=== PATIENT | male | born 1960 | race Caucasian/White ===

== ENCOUNTER 2020-03-03 04:18 | Inpatient (IN) ==
[2020-03-03] MEDS ORDERED: Acetaminophen 325 MG TABLET PO PRN (06:45)
[2020-03-03] MEDS ORDERED: Naloxone 0.4 MG/ML INJ IVP PRN (06:45)
[2020-03-03 06:46] LABS: Influenza A PCR Negative (Negative); Influenza B PCR Negative (Negative); Resp. Syncytial Virus PCR Negative (Negative)
[2020-03-03] MEDS ORDERED: Perflutren Lipid Microsphere 1.3 ML in 0.9 % Sodium Chloride 8.7 ML IVP PRN (06:46)
[2020-03-03 06:50] LABS: SARS-CoV-2 by PCR (In House) Positive (Negative)
[2020-03-03 08:01] LABS: Basophils % 0.4 %; Eosinophils # 0.1 K/mcL (0.0-0.6); Eosinophils % 1.4 %; Hematocrit 39.3 % (37.5-50.1); Hemoglobin 13.3 g/dL (12.9-16.9); Immature Granulocytes % 0.2 % (0-4); Lymphocytes # 2.1 K/mcL (0.6-4.6); Lymphocytes % 22.2 %; Mean Corpuscular HGB Conc 33.8 g/dL (31.6-35.5); Mean Corpuscular Volume 85.8 fL (83.0-100.0); Mean Platelet Volume 9.7 fL (9.4-12.4); Monocytes # 0.6 K/mcL (0.0-1.3); Neutrophils # 6.6 K/mcL (1.6-8.9); Platelet Count 220 K/mcL (140-400); Red Blood Count 4.58 M/mcL (4.19-5.50); Red Cell Distribution Width 13.6 % (11.5-14.5); Segmented Neutrophils % 69.8 %; White Blood Count 9.5 K/mcL (4.3-11.1)
[2020-03-03 08:04] LABS: INR 1.1; Prothrombin Time 12.3 Seconds (9.4-12.1)
[2020-03-03 08:21] LABS: Troponin I 0.06 ng/mL (< 0.04)
[2020-03-03 08:29] LABS: Albumin 4.2 g/dL (3.5-5.7); Albumin/Globulin Ratio 1.4 (1.1-2.2); Bilirubin,Total 1.1 mg/dL (0.3-1.0); Calcium 8.9 mg/dL (8.6-10.3); Chol/HDL Ratio 4.6 (0-4.9); Globulin 3.1 g/dL (2.4-3.5); Magnesium 2.1 mg/dL (1.6-2.6); Phosphorous 4.2 mg/dL (2.7-4.5); Potassium 3.7 mEq/L (3.5-5.1); Total Protein 7.3 g/dL (6.4-8.9)
[2020-03-03] MEDS: amLODIPine 5 MG TABLET PO SCH (10:55)
[2020-03-03 12:04] LABS: Bilirubin,Urine Negative (Negative); Blood,Urine Negative (Negative); Clarity,Urine Clear (Clear); Color,Urine Light-Yellow (Yellow); Glucose,Urine (UA) Normal (Normal); Ketones,Urine Negative (Negative); Leukocyte Esterase,Urine Negative (Negative); Nitrite,Urine Negative (Negative); Protein,Urine Trace mg/dL (Neg-Trace); Specific Gravity,Urine 1.014 (1.010-1.025); Urobilinogen,Urine Normal (Normal)
[2020-03-03 12:12] LABS: Protein/Creatinine Ratio,Urine 0.34 mg/mg (0.00-0.20); Sodium, Urine 76.1 mEq/L
[2020-03-03] MEDS ORDERED: *HR* Labetalol 20 MG/4 ML SYRINGE IVP ONE (18:56)
[2020-03-04 01:02] LABS: Basophils % 0.4 %; Eosinophils # 0.3 K/mcL (0.0-0.6); Eosinophils % 2.7 %; Hematocrit 38.9 % (37.5-50.1); Hemoglobin 13.4 g/dL (12.9-16.9); Immature Granulocytes % 0.2 % (0-4); Lymphocytes % 31.6 %; Mean Corpuscular HGB Conc 34.4 g/dL (31.6-35.5); Mean Corpuscular Hemoglobin 28.9 pg (28.0-33.3); Mean Corpuscular Volume 83.8 fL (83.0-100.0); Mean Platelet Volume 9.9 fL (9.4-12.4); Monocytes # 0.7 K/mcL (0.0-1.3); Monocytes % 7.4 %; Neutrophils # 5.4 K/mcL (1.6-8.9); Platelet Count 200 K/mcL (140-400); Red Blood Count 4.64 M/mcL (4.19-5.50); Red Cell Distribution Width 13.9 % (11.5-14.5); Segmented Neutrophils % 57.7 %; White Blood Count 9.4 K/mcL (4.3-11.1)
[2020-03-04 01:22] LABS: Calcium 8.5 mg/dL (8.6-10.3); Potassium 3.5 mEq/L (3.5-5.1)
[2020-03-04 04:09] LABS: Estimated Average Glucose 100 mg/dl; Hemoglobin A1C 5.1 %
[2020-03-04] MEDS ORDERED: Regadenoson 0.4 MG/5 ML SYRINGE IVP ONE (06:12)
[2020-03-04] MEDS: Aspirin Enteric Coated 81 MG Tablet PO SCH (07:55)
[2020-03-04] MEDS: amLODIPine 5 MG TABLET PO SCH (07:55)
[2020-03-04] MEDS ORDERED: 0.9 % Sodium Chloride 1,000 ML IVC SCH (11:45)
[2020-03-04] MEDS: Gabapentin 300 MG CAPSULE PO SCH ×2 (17:57→22:17)
[2020-03-04] MEDS: traZODone 50 MG TABLET PO SCH (22:17)
[2020-03-05 05:39] LABS: Calcium 8.6 mg/dL (8.6-10.3); Magnesium 2.2 mg/dL (1.6-2.6); Phosphorous 3.9 mg/dL (2.7-4.5); Potassium 3.5 mEq/L (3.5-5.1)
[2020-03-05] MEDS: Aspirin Enteric Coated 81 MG Tablet PO SCH (08:08)
[2020-03-05] MEDS: amLODIPine 5 MG TABLET PO SCH (08:08)
[2020-03-05] MEDS: Gabapentin 300 MG CAPSULE PO SCH ×3 (08:08→21:34)
[2020-03-05] MEDS ORDERED: 0.9 % Sodium Chloride 1,000 ML IVC SCH (10:00)
[2020-03-05] MEDS: traZODone 50 MG TABLET PO SCH (21:34)
[2020-03-06 04:34] LABS: Basophils % 0.4 %; Eosinophils # 0.4 K/mcL (0.0-0.6); Eosinophils % 4.2 %; Hematocrit 38.9 % (37.5-50.1); Hemoglobin 12.8 g/dL (12.9-16.9); Immature Granulocytes % 0.4 % (0-4); Lymphocytes # 2.9 K/mcL (0.6-4.6); Lymphocytes % 31.2 %; Mean Corpuscular HGB Conc 32.9 g/dL (31.6-35.5); Mean Corpuscular Hemoglobin 28.4 pg (28.0-33.3); Mean Corpuscular Volume 86.3 fL (83.0-100.0); Mean Platelet Volume 9.7 fL (9.4-12.4); Monocytes # 0.7 K/mcL (0.0-1.3); Monocytes % 7.3 %; Neutrophils # 5.3 K/mcL (1.6-8.9); Platelet Count 228 K/mcL (140-400); Red Blood Count 4.51 M/mcL (4.19-5.50); Red Cell Distribution Width 13.8 % (11.5-14.5); Segmented Neutrophils % 56.5 %; White Blood Count 9.3 K/mcL (4.3-11.1)
[2020-03-06 04:53] LABS: Calcium 8.7 mg/dL (8.6-10.3); Magnesium 2.2 mg/dL (1.6-2.6); Phosphorous 3.8 mg/dL (2.7-4.5); Potassium 3.6 mEq/L (3.5-5.1)
[2020-03-06] MEDS: Gabapentin 300 MG CAPSULE PO SCH ×3 (08:12→21:39)
[2020-03-06] MEDS: Aspirin Enteric Coated 81 MG Tablet PO SCH (08:12)
[2020-03-06] MEDS: amLODIPine 5 MG TABLET PO SCH (08:36)
[2020-03-06] MEDS ORDERED: Nitroglycerin 1,000 MCG/10 ML VIAL IV ONE (10:24)
[2020-03-06] MEDS ORDERED: Heparin 1,000 UNITS/500 mL 500 ML ONE (10:24)
[2020-03-06] MEDS ORDERED: 0.9 % Sodium Chloride 1,000 ML ONE (10:24)
[2020-03-06] MEDS ORDERED: ISOVUE-370 200 ML INFUS..BTL ONE (10:24)
[2020-03-06] MEDS ORDERED: *HR* Heparin 10,000 UNIT/10 ML VIAL ONE (10:24)
[2020-03-06] MEDS ORDERED: *HR* FentaNYL (PF) 100 MCG/2 ML VIAL ONE (10:49)
[2020-03-06] MEDS ORDERED: *HR* Midazolam HCl 2 MG/2 ML VIAL ONE (10:50)
[2020-03-06] MEDS: hydrALAZINE 25 MG TABLET PO SCH ×2 (17:59→21:39)
[2020-03-06] MEDS: traZODone 50 MG TABLET PO SCH (21:39)
[2020-03-07 02:23] LABS: Basophils # 0.1 K/mcL (0.0-0.2); Basophils % 0.4 %; Eosinophils # 0.4 K/mcL (0.0-0.6); Eosinophils % 3.5 %; Hematocrit 37.7 % (37.5-50.1); Hemoglobin 12.8 g/dL (12.9-16.9); Immature Granulocytes % 0.2 % (0-4); Lymphocytes # 3.3 K/mcL (0.6-4.6); Lymphocytes % 28.5 %; Mean Corpuscular Hemoglobin 28.9 pg (28.0-33.3); Mean Corpuscular Volume 85.1 fL (83.0-100.0); Mean Platelet Volume 9.2 fL (9.4-12.4); Monocytes % 8.8 %; Neutrophils # 6.7 K/mcL (1.6-8.9); Platelet Count 221 K/mcL (140-400); Red Blood Count 4.43 M/mcL (4.19-5.50); Red Cell Distribution Width 13.9 % (11.5-14.5); Segmented Neutrophils % 58.6 %; White Blood Count 11.4 K/mcL (4.3-11.1)
[2020-03-07 02:38] LABS: Calcium 8.5 mg/dL (8.6-10.3); Magnesium 2.2 mg/dL (1.6-2.6); Phosphorous 3.8 mg/dL (2.7-4.5); Potassium 3.6 mEq/L (3.5-5.1)
[2020-03-07] MEDS: amLODIPine 5 MG TABLET PO SCH (08:15)
[2020-03-07] MEDS: Aspirin Enteric Coated 81 MG Tablet PO SCH (08:15)
[2020-03-07] MEDS: Gabapentin 300 MG CAPSULE PO SCH (08:15)
[2020-03-07] MEDS ORDERED: hydrALAZINE 25 MG TABLET PO SCH (09:00)
[2020-03-07 10:43] VITALS: BP 135/78
[2020-03-07] MEDS ORDERED: FLU Vac QV 20-21 (6Month+)/PF 0.5 ML SYRINGE IM ONE (12:52)
== END 2020-03-07 14:24 | disposition home or self-care (01) | DRG 682 ==
LOC: CDU → SUATTDRO 05:57 → 2NENU 06:55 → CDU 18:53 → 3ANU 03-04 06:05 → SUATTDRO 03-04 19:50
PROVIDERS: ADMIT Student in an Organized Health Care Education/Training Program; ATTEND Internal Medicine

== ENCOUNTER 2021-01-05 19:50 | Inpatient (IN) ==
[2021-01-05] MEDS ORDERED: Perflutren Lipid Microsphere 1.3 ML in 0.9 % Sodium Chloride 8.7 ML IVP PRN ×2 (21:11→22:20)
[2021-01-05] MEDS ORDERED: Furosemide 20 MG/2 ML VIAL IVP ONE ×2 (21:21→22:16)
[2021-01-05] MEDS ORDERED: Potassium Chloride Elixir 20 MEQ/15 ML UDC PO ONE (21:22)
[2021-01-05] MEDS ORDERED: *HR* Heparin 5,000 UNIT/ML VIAL IVP PRN (21:22)
[2021-01-05] MEDS ORDERED: Naloxone 0.4 MG/ML INJ IVP PRN (21:24)
[2021-01-05] MEDS ORDERED: Acetaminophen 325 MG TABLET PO PRN (21:29)
[2021-01-05] MEDS ORDERED: Ondansetron 4 MG/2 ML VIAL IVP PRN (21:29)
[2021-01-05] MEDS ORDERED: Heparin 25,000UNIT/250ML 1/2NS 25,000 UNIT/250 ML IV.SOLN IVC SCH (21:30)
[2021-01-05] MEDS: Gabapentin 400 MG CAPSULE PO SCH (21:45)
[2021-01-05 22:11] LABS: Heparin anti-factor XA UFH 0.66 IU/mL (0.30-0.70); INR 1.2; Prothrombin Time 13.1 Seconds (9.4-12.1)
[2021-01-06] MEDS ORDERED: Morphine Sulfate 2 MG/ML SYRINGE IVP PRN (00:48)
[2021-01-06 04:17] LABS: Hematocrit 38.7 % (37.5-50.1); Hemoglobin 13.2 g/dL (12.9-16.9); Mean Corpuscular HGB Conc 34.1 g/dL (31.6-35.5); Mean Corpuscular Hemoglobin 29.3 pg (28.0-33.3); Mean Corpuscular Volume 85.8 fL (83.0-100.0); Mean Platelet Volume 9.4 fL (9.4-12.4); Platelet Count 221 K/mcL (140-400); Red Blood Count 4.51 M/mcL (4.19-5.50); Red Cell Distribution Width 13.6 % (11.5-14.5); White Blood Count 7.5 K/mcL (4.3-11.1)
[2021-01-06 04:24] LABS: Calcium 8.1 mg/dL (8.6-10.3); Chol/HDL Ratio 3.2 (0-4.9); Magnesium 2.1 mg/dL (1.6-2.6); Potassium 3.3 mEq/L (3.5-5.1)
[2021-01-06] MEDS: *HR* Heparin 5,000 UNIT/ML VIAL IVP PRN ×2 (05:59→12:59)
[2021-01-06] MEDS: Aspirin Enteric Coated 81 MG Tablet PO SCH (07:55)
[2021-01-06] MEDS: Gabapentin 400 MG CAPSULE PO SCH ×3 (07:55→19:49)
[2021-01-06] MEDS: Furosemide 40 MG/4 ML VIAL IVP SCH ×3 (07:56→23:52)
[2021-01-06] MEDS ORDERED: Potassium Chloride Elixir 20 MEQ/15 ML UDC PO ONE (08:22)
[2021-01-06 08:38] LABS: Estimated Average Glucose 97 mg/dl
[2021-01-06] MEDS ORDERED: Metoprolol XL (24 HR) Succ 50 MG TAB.ER.24H PO SCH ×2 (09:00)
[2021-01-06] MEDS ORDERED: amLODIPine 5 MG TABLET PO SCH (09:00)
[2021-01-06] MEDS: Isosorbide MONOnitrate (24 HR) 30 MG TAB.ER.24H PO SCH (10:19)
[2021-01-06] MEDS ORDERED: hydrALAZINE 25 MG TABLET PO ONE (12:18)
[2021-01-06] MEDS: amLODIPine 5 MG TABLET PO SCH (12:54)
[2021-01-06] MEDS: hydrALAZINE 25 MG TABLET PO SCH ×2 (16:02→23:52)
[2021-01-06] MEDS: Metoprolol XL (24 HR) Succ 50 MG TAB.ER.24H PO SCH (19:49)
[2021-01-07 02:19] LABS: Calcium 8.1 mg/dL (8.6-10.3); Potassium 3.3 mEq/L (3.5-5.1)
[2021-01-07 05:47] LABS: Hematocrit 39.9 % (37.5-50.1); Hemoglobin 13.3 g/dL (12.9-16.9); Mean Corpuscular HGB Conc 33.3 g/dL (31.6-35.5); Mean Corpuscular Hemoglobin 28.7 pg (28.0-33.3); Mean Platelet Volume 9.4 fL (9.4-12.4); Platelet Count 237 K/mcL (140-400); Red Blood Count 4.63 M/mcL (4.19-5.50); Red Cell Distribution Width 13.5 % (11.5-14.5); White Blood Count 8.3 K/mcL (4.3-11.1)
[2021-01-07 05:52] LABS: Mean Corpuscular Volume 86.2 fL (83.0-100.0)
[2021-01-07] MEDS: Furosemide 40 MG/4 ML VIAL IVP SCH (07:45)
[2021-01-07] MEDS: amLODIPine 5 MG TABLET PO SCH (07:46)
[2021-01-07] MEDS: Aspirin Enteric Coated 81 MG Tablet PO SCH (07:46)
[2021-01-07] MEDS: hydrALAZINE 25 MG TABLET PO SCH ×4 (07:47→22:53)
[2021-01-07] MEDS: Gabapentin 400 MG CAPSULE PO SCH ×3 (07:47→19:38)
[2021-01-07] MEDS: Metoprolol XL (24 HR) Succ 50 MG TAB.ER.24H PO SCH ×3 (07:47→19:38)
[2021-01-07] MEDS: Isosorbide MONOnitrate (24 HR) 30 MG TAB.ER.24H PO SCH (07:47)
[2021-01-07] MEDS ORDERED: amLODIPine 5 MG TABLET PO SCH (09:00)
[2021-01-07] MEDS: Isosorbide MONOnitrate (24 HR) 60 MG TAB.ER.24H PO SCH (10:16)
[2021-01-07] MEDS: Ipratropium/Albuterol Neb 3 ML IH SCH ×3 (11:13→21:53)
[2021-01-07] MEDS: predniSONE 20 MG TABLET PO SCH (11:55)
[2021-01-07] MEDS: Albumin 25% 25gram/100mL 25 GM/100 ML IV.SOLN IVPB SCH ×2 (16:01→22:53)
[2021-01-07] MEDS: *HR* Heparin 5,000 UNIT/ML VIAL SQ SCH (17:32)
[2021-01-08 01:50] LABS: Basophils % 0.4 %; Hematocrit 34.2 % (37.5-50.1); Hemoglobin 12.2 g/dL (12.9-16.9); Immature Granulocytes % 1.1 % (0-4); Lymphocytes # 1.3 K/mcL (0.6-4.6); Lymphocytes % 18.9 %; Mean Corpuscular HGB Conc 35.7 g/dL (31.6-35.5); Mean Corpuscular Hemoglobin 30.3 pg (28.0-33.3); Mean Corpuscular Volume 84.9 fL (83.0-100.0); Monocytes # 0.5 K/mcL (0.0-1.3); Monocytes % 6.5 %; Neutrophils # 5.2 K/mcL (1.6-8.9); Platelet Count 283 K/mcL (140-400); Red Blood Count 4.03 M/mcL (4.19-5.50); Red Cell Distribution Width 12.9 % (11.5-14.5); Segmented Neutrophils % 73.1 %; White Blood Count 7.1 K/mcL (4.3-11.1)
[2021-01-08 01:55] LABS: Calcium 8.5 mg/dL (8.6-10.3); Potassium 3.4 mEq/L (3.5-5.1)
[2021-01-08 03:14] LABS: Platelet Estimate Normal (Normal); Reactive Lymphocytes Present (Not Present)
[2021-01-08] MEDS: Ipratropium/Albuterol Neb 3 ML IH SCH ×4 (03:39→21:33)
[2021-01-08] MEDS: Albumin 25% 25gram/100mL 25 GM/100 ML IV.SOLN IVPB SCH ×3 (06:12→23:02)
[2021-01-08] MEDS: *HR* Heparin 5,000 UNIT/ML VIAL SQ SCH ×2 (06:12→18:28)
[2021-01-08] MEDS: hydrALAZINE 25 MG TABLET PO SCH (08:27)
[2021-01-08] MEDS: predniSONE 20 MG TABLET PO SCH (08:27)
[2021-01-08] MEDS: Metoprolol XL (24 HR) Succ 50 MG TAB.ER.24H PO SCH (08:28)
[2021-01-08] MEDS: Gabapentin 400 MG CAPSULE PO SCH ×3 (08:28→20:53)
[2021-01-08] MEDS: Furosemide 40 MG TABLET PO SCH (08:28)
[2021-01-08] MEDS: Isosorbide MONOnitrate (24 HR) 60 MG TAB.ER.24H PO SCH (08:28)
[2021-01-08] MEDS: Aspirin Enteric Coated 81 MG Tablet PO SCH (08:28)
[2021-01-08 08:56] LABS: Sodium, Urine 34.7 mEq/L
[2021-01-08 09:13] LABS: Bilirubin,Urine Negative (Negative); Blood,Urine Negative (Negative); Clarity,Urine Clear (Clear); Color,Urine Light-Yellow (Yellow); Glucose,Urine (UA) 70 mg/dL (Normal); Ketones,Urine Negative (Negative); Leukocyte Esterase,Urine Negative (Negative); Mucus,Urine Few per lpf (None-Few); Nitrite,Urine Negative (Negative); PH,Urine 5.5 pH Units (5.0-8.0); Protein,Urine 70 mg/dL (Neg-Trace); RBC,Urine 0-3 per hpf (0-3); Specific Gravity,Urine 1.017 (1.010-1.025); Urobilinogen,Urine Normal (Normal); WBC,Urine 0-3 per hpf (0-3)
[2021-01-08] MEDS: amLODIPine 5 MG TABLET PO SCH (11:16)
[2021-01-08] MEDS: Benzonatate 100 MG CAPSULE PO PRN (15:28)
[2021-01-08] MEDS: carvediloL 6.25 MG TABLET PO SCH (15:29)
[2021-01-09 00:49] LABS: Basophils % 0.2 %; Eosinophils % 0.1 %; Hematocrit 32.7 % (37.5-50.1); Hemoglobin 11.5 g/dL (12.9-16.9); Lymphocytes # 1.9 K/mcL (0.6-4.6); Lymphocytes % 19.8 %; Mean Corpuscular HGB Conc 35.2 g/dL (31.6-35.5); Mean Corpuscular Hemoglobin 30.1 pg (28.0-33.3); Mean Corpuscular Volume 85.6 fL (83.0-100.0); Mean Platelet Volume 9.6 fL (9.4-12.4); Monocytes # 0.6 K/mcL (0.0-1.3); Monocytes % 5.7 %; Neutrophils # 7.1 K/mcL (1.6-8.9); Platelet Count 273 K/mcL (140-400); Red Blood Count 3.82 M/mcL (4.19-5.50); Red Cell Distribution Width 13.3 % (11.5-14.5); Segmented Neutrophils % 73.2 %; White Blood Count 9.8 K/mcL (4.3-11.1)
[2021-01-09 01:06] LABS: Calcium 9.1 mg/dL (8.6-10.3); Potassium 3.6 mEq/L (3.5-5.1)
[2021-01-09] MEDS: Ipratropium/Albuterol Neb 3 ML IH SCH ×2 (04:26→10:21)
[2021-01-09] MEDS: *HR* Heparin 5,000 UNIT/ML VIAL SQ SCH (05:54)
[2021-01-09] MEDS: Albumin 25% 25gram/100mL 25 GM/100 ML IV.SOLN IVPB SCH (05:54)
[2021-01-09 06:30] VITALS: BP 160/86; PULSE 69; TEMP 97.3; O2SAT 94
[2021-01-09] MEDS: amLODIPine 5 MG TABLET PO SCH (08:16)
[2021-01-09] MEDS: Furosemide 40 MG TABLET PO SCH (08:16)
[2021-01-09] MEDS: Aspirin Enteric Coated 81 MG Tablet PO SCH (08:16)
[2021-01-09] MEDS: carvediloL 6.25 MG TABLET PO SCH (08:17)
[2021-01-09] MEDS: predniSONE 20 MG TABLET PO SCH (08:17)
[2021-01-09] MEDS: Gabapentin 400 MG CAPSULE PO SCH (08:17)
[2021-01-09] MEDS: Benzonatate 100 MG CAPSULE PO PRN (09:56)
== END 2021-01-09 11:51 | disposition home or self-care (01) | DRG 291 ==
LOC: 3BNU → SUATTDRO 19:54 → 3BNU 01-09 02:38
PROVIDERS: ADMIT Internal Medicine; ATTEND Internal Medicine